=== PATIENT | male | born 1955 | race Caucasian/White ===

== ENCOUNTER 2021-03-05 05:33 | Day surgery (SDC) | payer MEDICARE ==
[2021-02-25 11:58] LABS: BASOPHILS # (AUTO) 0.1 X10'3 (0-0.2); BASOPHILS % (AUTO) 0.9 % (0-1); EOSINOPHILS # (AUTO) 0.1 X10'3 (0-0.9); EOSINOPHILS % (AUTO) 1.9 % (0-6); LYMPHOCYTES # (AUTO) 2.3 X10'3 (1.1-4.8); LYMPHOCYTES % (AUTO) 39.7 % (21-51); MEAN CORPUSCULAR HEMOGLOBIN 29.6 PG (27.0-31.0); MEAN CORPUSCULAR HGB CONC 33.7 g/dL (33.0-36.5); MEAN CORPUSCULAR VOLUME 87.7 FL (78-98); MEAN PLATELET VOLUME 8.2 FL (7.4-10.4); MONOCYTES # (AUTO) 0.4 X10'3 (0-0.9); MONOCYTES % (AUTO) 6.7 % (2-12); NEUTROPHILS % (AUTO) 50.8 % (42-75); PRE OP HEMATOCRIT 45.2 % (42.0-52.0); PRE OP HEMOGLOBIN 15.3 g/dL (14.0-17.9); PRE OP PLATELET COUNT 271 X10'3 (140-440); RED BLOOD COUNT 5.16 X10'6 (4.70-6.10)
[2021-02-25 12:14] LABS: ALBUMIN 4.5 G/DL (3.4-5.0); ALBUMIN/GLOBULIN RATIO 1.2 (1.1-1.5); ALKALINE PHOSPHATASE 105 IU/L (46-116); BLOOD UREA NITROGEN 16 MG/DL (7-18); BUN/CREATININE RATIO 14.8 (5.4-32.0); CALCIUM 9.5 MG/DL (8.5-10.1); CHLORIDE 102 MMOL/L (99-107); CREATININE 1.08 MG/DL (0.60-1.10); PRE OP ALT 35 U/L (30-65); PRE OP ANION GAP 6 (8-16); PRE OP AST 21 U/L (10-37); PRE OP BILIRUB, TOTAL 1.3 MG/DL (0.0-1.0); PRE OP GLUCOSE 104 MG/DL (70-104); PRE OP POTASSIUM 3.4 MMOL/L (3.4-5.1); PRE OP SODIUM 135 MMOL/L (135-145); TOTAL CARBON DIOXIDE 27.2 MMOL/L (24-32); TOTAL PROTEIN 8.2 G/DL (6.4-8.2); eGFR 68 ML/MIN
[2021-02-25 12:17] LABS: CLARITY,URINE CLEAR (Clear); COLOR,URINE YELLOW (Yellow); GLUCOSE, URINE NEGATIVE (Neg); KETONES,URINE NEGATIVE (Neg); NITRITES, URINE NEGATIVE (Neg); OCCULT BLOOD,URINE NEGATIVE (Neg); PROTEIN,URINE NEGATIVE (Neg); UA COLLECTION TYPE VOIDED
[2021-02-25 12:18] LABS: LEUKOCYTE ESTERASE ,URINE NEGATIVE (Neg); UROBILINOGEN,URINE 0.2 E.U/dL (0.2-1.0)
[2021-03-05] VITALS (14 sets, daily range): BP systolic 105–163; BP diastolic 50–92
[~2021-03-05] VITALS: Ht 182.9 cm; Wt 116.0 kg
[~2021-03-05 05:33] MED LIST: AMLO10TA13 PO; ATOR40TA72 PO; ERGO400C PO; LISI1TAB51 PO; MULT-1085 PO; NAPR220C15 PO; ceFAZolin 2gm in dextrose, iso 50 ML IV ONE; famotidine 20mg tablet PO ONE; ringers solution, lacted 1,000 ML IV SCH
[2021-03-05] MEDS ORDERED: amLODIPine 5mg tablet PO ONE (06:00)
[2021-03-05] MEDS ORDERED: LIDOcaine 1% (10mg/ml) 2ml vial ONE (06:03)
[2021-03-05] MEDS ORDERED: bacitracin 15gm ointment TP ONE (08:09)
[2021-03-05] MEDS ORDERED: midazolam 1 mg/ML 2ml injection ONE (08:19)
[2021-03-05] MEDS ORDERED: fentaNYL/PF 50MCG/1 ML 2ML syringe ONE ×2 (08:19→09:09)
[2021-03-05] MEDS ORDERED: proCHLORperazine 10 MG/2 ml inj IV PRN (10:50)
[2021-03-05] MEDS ORDERED: morphine 4 MG/ML inj SYRINge IV PRN (10:50)
[2021-03-05] MEDS ORDERED: ondansetron/PF 4mg/2ml inj IV PRN (10:50)
[2021-03-05] MEDS ORDERED: ROPIVAcaine 0.2% (10 MG/5 ML) BOLUS INJECTION ADDCANAL PRN (10:50)
[2021-03-05] MEDS ORDERED: ringers solution, lacted 1,000 ML IV SCH (10:50)
[2021-03-05] MEDS ORDERED: meperidine/PF 25mg/ml syringe IV PRN ×3 (10:50)
[2021-03-05] MEDS ORDERED: morphine 2 MG/ML inj. syringe IV PRN (10:50)
[2021-03-05] MEDS ORDERED: ROPIVAcaine 0.2%/PF PUMP/bolus 545 ML ADDCANAL SCH (10:55)
[2021-03-05] MEDS ORDERED: ROPIVAcaine 0.5% (5mg/ml) 30ml vial ONE ×2 (12:08)
[2021-03-05] MEDS ORDERED: acetaminophen 1,000mg/100ml IV 100 ML IV ONE (12:09)
[2021-03-05] MEDS ORDERED: rocuronium 10mg/ml inj IV ONE (12:09)
[2021-03-05] MEDS ORDERED: glycopyrrolate 0.2mg/ml inj ONE (12:09)
[2021-03-05] MEDS ORDERED: ondansetron/PF 4mg/2ml inj ONE (12:09)
[2021-03-05] MEDS ORDERED: propofol inj 20 ML IV ONE (12:09)
[2021-03-05] MEDS ORDERED: dexamethasone sod phosphate 4mg/ml inj. ONE (12:09)
[2021-03-05] MEDS ORDERED: LIDOcaine 2% (20mg/ml) 5ml vial ONE (12:09)
[2021-03-05] MEDS ORDERED: neostigmine methylsulfate 1 MG/ML 10ml vial ONE (12:09)
[2021-03-05] MEDS ORDERED: ePHEDrine 50MG/ML INJ. ONE (12:20)
[2021-03-05] MEDS ORDERED: ceFAZolin 1000mg inj ONE (12:46)
[2021-03-05] MEDS ORDERED: meperidine/PF 25mg/ml syringe ONE (13:26)
--- NOTE | 2021-03-05 14:15 | NUR ---
Received from OR via , accompanied by Anesthesiologist DR DHALIWAL and report given by Anesthesiolgist. UNRESPONSIVE LMA VITALS STABLE. DRESSING DI. RLE ELEVATED.
--- NOTE | 2021-03-05 14:28 | NUR ---
PT IS AWAKE AND LMA WAS REMOVED. VITALS STABLE.
[2021-03-05] MEDS ORDERED: HYDROcodone/acetaminophen 10/325mg tab PO ONE (15:10)
[2021-03-05] MEDS ORDERED: ketorolac tromethamine 15mg/ml inj. IV ONE (15:50)
--- NOTE | 2021-03-05 16:35 | NUR ---
AWAKE AND ORIENTED. VITALS STABLE. SPLINT DI. STATES PAIN IMPROVING. HOME WITH HIS SPOUSE AT THIS TIME.
== END 2021-03-05 16:35 | disposition home or self-care (01) ==
LOC: PAS 05:33
PROVIDERS: ATTEND Podiatrist Foot & Ankle Surgery
DX: M19.071 Primary osteoarthritis, right ankle and foot (principal); M21.6X1 Other acquired deformities of right foot; M76.71 Peroneal tendinitis, right leg; M21.171 Varus deformity, not elsewhere classified, right ankle; M25.471 Effusion, right ankle; M25.374 Other instability, right foot; M25.371 Other instability, right ankle; M24.574 Contracture, right foot; M24.071 Loose body in right ankle; M79.671 Pain in right foot; E78.5 Hyperlipidemia, unspecified; I10 Essential (primary) hypertension; G89.18 Other acute postprocedural pain; E66.9 Obesity, unspecified; Z68.33 Body mass index [BMI] 33.0-33.9, adult; Z88.5 Allergy status to narcotic agent; Z79.899 Other long term (current) drug therapy; Z79.82 Long term (current) use of aspirin; Z98.890 Other specified postprocedural states; Z20.822 Contact with and (suspected) exposure to COVID-19
CPT/HCPCS: 20680; 27610; 27685; 27687; 27690; 27695; 28008; 28035; 28270; 28300; 28725; 36415; 64446; 64447; 73610; 76000; 76937; 76942; 80053; 81003; 82948; 85025; 93005; A6223; C1713; C1734; J0131; J0690; J1100; J1885; J2001; J2175; J2250; J2270; J2405; J2704; J2710; J2795; J3010; J7120; U0003; U0005; Z7506; Z7508; Z7512; A4618; A6253; A6449; A7000; J3490

== ENCOUNTER 2021-03-10 08:48 | Emergency (ER) | payer MEDICARE ==
[~2021-03-10] VITALS: Ht 182.9 cm; Wt 115.0 kg
[~2021-03-10 08:48] MED LIST changes: -ceFAZolin 2gm in dextrose, iso 50 ML IV ONE; -famotidine 20mg tablet PO ONE; -ringers solution, lacted 1,000 ML IV SCH
[2021-03-10 10:08] VITALS: BP 117/65
[2021-03-10 10:40] LABS: CLARITY,URINE CLEAR (Clear); COLOR,URINE YELLOW (Yellow); GLUCOSE, URINE NEGATIVE (Neg); KETONES,URINE NEGATIVE (Neg); NITRITES, URINE NEGATIVE (Neg); OCCULT BLOOD,URINE TRACE-INTACT (Neg); PROTEIN,URINE NEGATIVE (Neg); UA COLLECTION TYPE VOIDED
[2021-03-10 10:41] LABS: LEUKOCYTE ESTERASE ,URINE NEGATIVE (Neg); UROBILINOGEN,URINE 0.2 E.U/dL (0.2-1.0)
[2021-03-10 10:44] LABS: MUCUS STRANDS FEW /LPF (Neg); SQUAMOUS EPITHELIAL CELL,UR FEW /LPF (FEW)
[2021-03-10 10:45] LABS: BACTERIA,URINE 1+ /HPF (Neg); RBC,URINE 0-2 /HPF (0-2); WBC CLUMPS,URINE FEW /HPF (NEGATIVE)
[2021-03-10] MEDS ORDERED: DOXY100C76 PO (11:29)
[2021-03-10] MEDS ORDERED: FLO0.4C PO (11:30)
[2021-03-10] MEDS ORDERED: POLY17PO10 PO (11:39)
[2021-03-10] MEDS ORDERED: LEVO500T90 PO (11:39)
[2021-03-10] MEDS ORDERED: IBUP-1984 PO (11:43)
[2021-03-10] MEDS ORDERED: CYCL-1 PO (11:43)
== END 2021-03-10 12:28 | disposition home or self-care (01) ==
LOC: ER 08:49
DX: N39.0 Urinary tract infection, site not specified (principal); R31.9 Hematuria, unspecified; R30.0 Dysuria; M54.50 Low back pain, unspecified; K59.00 Constipation, unspecified; Z98.890 Other specified postprocedural states; Z88.8 Allergy status to other drugs, medicaments and biological substances; Z79.2 Long term (current) use of antibiotics; Z79.899 Other long term (current) drug therapy
CPT/HCPCS: 81001; 87088; 99283

== ENCOUNTER 2021-08-13 12:02 | Inpatient (IN) | payer MEDICARE ==
[2021-08-06 15:32] LABS: CLARITY,URINE CLEAR (Clear); COLOR,URINE YELLOW (Yellow); GLUCOSE, URINE NEGATIVE (Neg); KETONES,URINE NEGATIVE (Neg); LEUKOCYTE ESTERASE ,URINE NEGATIVE (Neg); NITRITES, URINE NEGATIVE (Neg); OCCULT BLOOD,URINE NEGATIVE (Neg); PH,URINE 5.5 (4.8-8.0); PROTEIN,URINE NEGATIVE (Neg); UA COLLECTION TYPE CLN CATCH MIDSTREAM; UROBILINOGEN,URINE 0.2 E.U/dL (0.2-1.0)
[2021-08-06 15:36] LABS: BASOPHILS # (AUTO) 0.1 X10'3 (0-0.2); BASOPHILS % (AUTO) 1.7 % (0-1); EOSINOPHILS # (AUTO) 0.2 X10'3 (0-0.9); EOSINOPHILS % (AUTO) 2.1 % (0-6); LYMPHOCYTES # (AUTO) 1.7 X10'3 (1.1-4.8); LYMPHOCYTES % (AUTO) 23.7 % (21-51); MEAN CORPUSCULAR HEMOGLOBIN 27.5 PG (27.0-31.0); MEAN CORPUSCULAR HGB CONC 32.6 g/dL (33.0-36.5); MEAN CORPUSCULAR VOLUME 84.3 FL (78-98); MONOCYTES # (AUTO) 0.4 X10'3 (0-0.9); MONOCYTES % (AUTO) 5.3 % (2-12); NEUTROPHILS # (AUTO) 4.9 X10'3 (1.8-7.7); NEUTROPHILS % (AUTO) 67.2 % (42-75); PRE OP HEMATOCRIT 42.8 % (42.0-52.0); PRE OP PLATELET COUNT 254 X10'3 (140-440); RED BLOOD COUNT 5.07 X10'6 (4.70-6.10); RED CELL DISTRIBUTION WIDTH 15.3 % (11.5-14.5)
[2021-08-06 15:48] LABS: ALBUMIN 4.4 G/DL (3.4-5.0); ALBUMIN/GLOBULIN RATIO 1.3 (1.1-1.5); ALKALINE PHOSPHATASE 149 IU/L (46-116); BLOOD UREA NITROGEN 20 MG/DL (7-18); BUN/CREATININE RATIO 17.7 (5.4-32.0); CALCIUM 8.7 MG/DL (8.5-10.1); CREATININE 1.13 MG/DL (0.60-1.10); PRE OP ALT 34 U/L (30-65); PRE OP AST 22 U/L (10-37); PRE OP BILIRUB, TOTAL 1.2 MG/DL (0.0-1.0); PRE OP GLUCOSE 76 MG/DL (70-104); TOTAL CARBON DIOXIDE 26.7 MMOL/L (24-32); TOTAL PROTEIN 7.9 G/DL (6.4-8.2); eGFR 65 ML/MIN
[2021-08-06 15:56] LABS: CHLORIDE 103 MMOL/L (99-107); PRE OP ANION GAP 9 (8-16); PRE OP POTASSIUM 3.7 MMOL/L (3.4-5.1); PRE OP SODIUM 139 MMOL/L (135-145)
[2021-08-13] VITALS (18 sets, daily range): BP systolic 106–181; BP diastolic 55–99
[~2021-08-13] VITALS: Ht 182.9 cm; Wt 113.0 kg
[~2021-08-13 12:02] MED LIST changes: +FLO0.4C PO; +cefazolin/dext.iso 2gm/50ml IV ONE; +famotidine 20mg tablet PO ONE; +vancomycin 1,500 MG in NS 300ml IV soln IV ONE
[2021-08-13] MEDS: ringers solution, lacted 1,000 ML IV SCH (12:23)
[2021-08-13] MEDS ORDERED: BUPIVAcaine 0.5% inj/PF 0 ML ONE (13:28)
[2021-08-13] MEDS ORDERED: bacitracin 15gm ointment TP ONE (13:28)
[2021-08-13] MEDS ORDERED: FENTANYL CITRATE/PF 50 MCG/1 ML VIAL ONE ×3 (13:43→17:22)
[2021-08-13] MEDS ORDERED: MIDAZolam 1 MG/ML 5ML VIAL ONE (13:43)
[2021-08-13] MEDS ORDERED: ePHEDrine 50MG/ML INJ. ONE (13:44)
[2021-08-13] MEDS ORDERED: glycopyrrolate 0.2mg/ml inj ONE (13:44)
[2021-08-13] MEDS ORDERED: sevoflurane 250ml liquid IH ONE (13:44)
[2021-08-13] MEDS ORDERED: propofol inj 20 ML IV ONE (13:44)
[2021-08-13] MEDS ORDERED: neostigmine methylsulfate 1 MG/ML 10ml vial ONE (13:44)
[2021-08-13] MEDS ORDERED: PHENYLephrine 10mg/ml 5ml injection IV ONE (13:44)
[2021-08-13] MEDS ORDERED: acetaminophen 1000 MG/100ml vial IV ONE (13:44)
[2021-08-13] MEDS ORDERED: ondansetron/PF 4mg/2ml inj ONE (13:44)
[2021-08-13] MEDS ORDERED: ROPIVAcaine 0.5% (5mg/ml) 30ml vial ONE (15:25)
[2021-08-13] MEDS ORDERED: rocuronium 10mg/ml inj IV ONE (15:25)
[2021-08-13] MEDS ORDERED: meperidine/PF 25mg/ml syringe IV PRN ×2 (15:40)
[2021-08-13] MEDS ORDERED: morphine 2 MG/ML inj. syringe IV PRN (15:40)
[2021-08-13] MEDS ORDERED: morphine 4 MG/ML inj SYRINge IV PRN (15:40)
[2021-08-13] MEDS ORDERED: ROPIVAcaine 0.2% (10 MG/5 ML) BOLUS INJECTION POPLITEAL PRN (15:40)
[2021-08-13] MEDS ORDERED: ringers solution, lacted 1,000 ML IV SCH (15:40)
[2021-08-13] MEDS ORDERED: ondansetron/PF 4mg/2ml inj IV PRN ×2 (15:40→18:15)
[2021-08-13] MEDS ORDERED: HYDROcodone/acetaminophen 10/325mg tab PO PRN ×2 (18:15)
[2021-08-13] MEDS ORDERED: bisacodyl 10mg suppository rectal RC PRN (18:15)
[2021-08-13] MEDS ORDERED: naloxone 0.4 mg/ml inj IV PRN (18:15)
[2021-08-13] MEDS ORDERED: acetaminophen 325mg tablet PO PRN (18:15)
[2021-08-13] MEDS ORDERED: diphenhydrAMINE 25mg capsule PO PRN ×2 (18:15)
[2021-08-13] MEDS ORDERED: magnesium hydroxide 30ml (MOM) UD suspension PO PRN (18:15)
--- NOTE | 2021-08-13 18:19 | NUR ---
Received from OR via [facility] , accompanied by Anesthesiologist DR DHALIWAL and report given by Anesthesiolgist. PT PRESENTS WITH 20G LEFT HAND, MARTINA FOOT/ANKLE SPLINT ALLISON, AUDREYS. Addendum: 08/13/21 at 1833 by Glendy Carballo RN, RN Amended: Links added.
--- NOTE | 2021-08-13 18:19 | NUR ---
PT OUT OF OR, OR REPORTS SUÁREZ CATHETER PLACE DURING SURGERY WITH 170MLS OUT. SUÁREZ CATHETER REMOVED DURING SURGERY. Addendum: 08/13/21 at 1836 by Glendy Carballo RN, RN Amended: Links added.
[2021-08-13] MEDS: ROPIVAcaine 0.2%/PF PUMP/bolus 545 ML POPLITEAL SCH (18:28)
[2021-08-13] MEDS ORDERED: CHOL100046 PO (18:33)
[2021-08-13] MEDS ORDERED: NAPR220C62 PO (18:33)
--- NOTE | 2021-08-13 18:34 | NUR ---
PT OUT OF OR WITH LMA, LMA REMOVED. Addendum: 08/13/21 at 1835 by Glendy Carballo RN, RN Amended: Links added.
--- NOTE | 2021-08-13 19:29 | NUR ---
Report called to receiving nurse TIFFANI HALL. Transferred via [facility]OS[facility] BED TO ROOM 4022B BY CORY HALL AND ALEX HALL. ONE PT Belongings BAG SENT WITH PT AND CELL PHONE TO ROOM 4022B. BED IN LOW LOCKED POSITION WITH CALL LIGHT IN REACH, PT HOKKED UOP TO VITALS MACHINE AND CHART GIVEN TO PROGRAM SUPERVISOR. Special Issues communicated to receiving nurse. Addendum: 08/13/21 at 1935 by Glendy Carballo RN RN Amended: Links added.
[2021-08-13] MEDS ORDERED: vancomycin/NS 1 GM ADD-VANTAGE 250 ML IV SCH (20:00)
[2021-08-13] MEDS ORDERED: oxyCODONE/APAP 5-325mg tablet PO PRN (20:45)
[2021-08-13] MEDS: potassium cl 20mEq in 1/2 NS 1,000 ML IV SCH (21:53)
[2021-08-13] MEDS: sennosides 8.6mg tablet PO SCH (21:54)
[2021-08-13] MEDS: amLODIPine 5mg tablet PO SCH (21:54)
[2021-08-14] MEDS: ceFAZolin/D5W- 1GM premix 50 ML IV SCH ×2 (00:24→09:11)
[2021-08-14] MEDS: oxyCODONE/APAP 10/325mg tablet PO PRN ×2 (00:25→14:17)
[2021-08-14 02:00] VITALS: BP 139/63
[2021-08-14] MEDS: ringers solution, lacted 1,000 ML IV SCH ×4 (04:54→04:58)
[2021-08-14 07:38] LABS: BASOPHILS % (AUTO) 0.3 % (0-1); EOSINOPHILS % (AUTO) 0.2 % (0-6); HEMATOCRIT 38.9 % (42.0-52.0); HEMOGLOBIN 13.1 g/dl (14.0-17.9); LYMPHOCYTES # (AUTO) 0.9 X10'3 (1.1-4.8); LYMPHOCYTES % (AUTO) 9.7 % (21-51); MEAN CORPUSCULAR HEMOGLOBIN 28.5 PG (27.0-31.0); MEAN CORPUSCULAR HGB CONC 33.7 g/dL (33.0-36.5); MEAN CORPUSCULAR VOLUME 84.6 FL (78-98); MEAN PLATELET VOLUME 8.3 FL (7.4-10.4); MONOCYTES # (AUTO) 0.6 X10'3 (0-0.9); MONOCYTES % (AUTO) 6.8 % (2-12); NEUTROPHILS # (AUTO) 7.6 X10'3 (1.8-7.7); PLATELET COUNT 205 X10'3 (140-440); RED CELL DISTRIBUTION WIDTH 15.3 % (11.5-14.5); WHITE BLOOD COUNT 9.1 X10'3 (4.5-11.0)
[2021-08-14 08:11] LABS: ANION GAP 9 (8-16); CHLORIDE 105 MMOL/L (99-107); POTASSIUM 4.1 MMOL/L (3.5-5.1); SODIUM 138 MMOL/L (135-145); TOTAL CARBON DIOXIDE 24.2 MMOL/L (24-32)
--- NOTE | 2021-08-14 08:30 | NUR ---
Bladder scan done 1000ml in bladder. Called Dr Cotto for straight cath order.
--- NOTE | 2021-08-14 09:00 | NUR ---
Straight cath done 800ml out after 125ml void
[2021-08-14] MEDS: potassium cl 20mEq in 1/2 NS 1,000 ML IV SCH ×3 (09:10→18:15)
[2021-08-14] MEDS: tamsulosin 0.4mg capsule PO SCH (09:12)
[2021-08-14] MEDS: HYDROchlorothiazide 12.5mg capsule PO SCH (09:12)
[2021-08-14] MEDS: atorvastatin 20mg tablet PO SCH (09:12)
[2021-08-14] MEDS: lisinopril 20mg tablet PO SCH (09:13)
[2021-08-14] MEDS: multivitamins, therapeutics tablet PO SCH (09:13)
[2021-08-14] MEDS: aspirin 325mg tablet PO SCH (09:15)
[2021-08-14 10:00] VITALS: BP 123/60
--- NOTE | 2021-08-14 13:00 | NUR ---
Pt having bladder pressure, bladder scan done 700ml in bladder.
--- NOTE | 2021-08-14 13:32 | NUR ---
straight cath done, 800ml out. pt tolerated well
[2021-08-14 14:00] VITALS: BP 138/81
[2021-08-14 18:00] VITALS: BP 144/75
[2021-08-14] MEDS: sennosides 8.6mg tablet PO SCH (20:13)
[2021-08-14] MEDS: amLODIPine 5mg tablet PO SCH (20:13)
[2021-08-14] MEDS ORDERED: tamsulosin 0.4mg capsule PO ONE (20:40)
[2021-08-14] MEDS ORDERED: LIDOcaine 2% 10ml TOPICAL JELLY (Urojet) TP ONE (20:40)
[2021-08-14 22:04] VITALS: BP 127/64
--- NOTE | 2021-08-14 22:41 | NUR ---
807 in bladder. 1x dose of PM flomax given but patient is still retaining. Per Dr Cotto, put Stout back in if patient is retaining. I have already done 2 straight caths. Patient has some intermittent voids up to 200ml at a time but retains urine still.
--- NOTE | 2021-08-15 00:12 | NUR ---
Patient in room ORTHO 4022. I have received report from Lisette HALL and had the opportunity to ask questions and assume patient care.
--- NOTE | 2021-08-15 00:15 | NUR ---
Gail HALL to take over care. Pt sleeping comfortably at this time.
[2021-08-15 06:00] VITALS: BP 161/73
--- NOTE | 2021-08-15 06:25 | NUR ---
Problems reprioritized. Patient report given, questions answered & plan of care reviewed with Jacquelin HALL.
--- NOTE | 2021-08-15 07:07 | NUR ---
Patient in room ORTHO 4022B. I have received report from RAFAEL MYRICK and had the opportunity to ask questions and assume patient care.
[2021-08-15 07:13] LABS: ALBUMIN 3.3 G/DL (3.4-5.0); ANION GAP 5 (8-16); BLOOD UREA NITROGEN 13 MG/DL (7-18); BUN/CREATININE RATIO 13.3 (5.4-32.0); CALCIUM 8.5 MG/DL (8.5-10.1); CHLORIDE 103 MMOL/L (99-107); CREATININE 0.98 MG/DL (0.60-1.10); GLUCOSE 117 MG/DL (70-104); POTASSIUM 3.9 MMOL/L (3.5-5.1); SODIUM 135 MMOL/L (135-145); TOTAL CARBON DIOXIDE 27.2 MMOL/L (24-32); eGFR 77 ML/MIN
[2021-08-15 07:14] LABS: BASOPHILS % (AUTO) 0.3 % (0-1); EOSINOPHILS # (AUTO) 0.1 X10'3 (0-0.9); EOSINOPHILS % (AUTO) 1.2 % (0-6); HEMATOCRIT 37.3 % (42.0-52.0); HEMOGLOBIN 12.6 g/dl (14.0-17.9); LYMPHOCYTES # (AUTO) 1.3 X10'3 (1.1-4.8); LYMPHOCYTES % (AUTO) 12.2 % (21-51); MEAN CORPUSCULAR HEMOGLOBIN 28.6 PG (27.0-31.0); MEAN CORPUSCULAR HGB CONC 33.7 g/dL (33.0-36.5); MEAN CORPUSCULAR VOLUME 84.8 FL (78-98); MEAN PLATELET VOLUME 8.4 FL (7.4-10.4); MONOCYTES # (AUTO) 0.9 X10'3 (0-0.9); MONOCYTES % (AUTO) 8.5 % (2-12); NEUTROPHILS % (AUTO) 77.8 % (42-75); PLATELET COUNT 197 X10'3 (140-440); RED BLOOD COUNT 4.39 X10'6 (4.70-6.10); RED CELL DISTRIBUTION WIDTH 15.6 % (11.5-14.5); WHITE BLOOD COUNT 10.2 X10'3 (4.5-11.0)
[2021-08-15 09:38] VITALS: BP 134/78
[2021-08-15] MEDS: aspirin 325mg tablet PO SCH (09:40)
[2021-08-15] MEDS: tamsulosin 0.4mg capsule PO SCH (09:40)
[2021-08-15] MEDS: HYDROchlorothiazide 12.5mg capsule PO SCH (09:40)
[2021-08-15] MEDS: lisinopril 20mg tablet PO SCH (09:41)
[2021-08-15] MEDS: multivitamins, therapeutics tablet PO SCH (09:41)
[2021-08-15] MEDS: atorvastatin 20mg tablet PO SCH (09:41)
[2021-08-15 10:00] VITALS: BP 142/85
[2021-08-15] MEDS: ROPIVAcaine 0.2%/PF PUMP/bolus 545 ML POPLITEAL SCH (14:10)
--- NOTE | 2021-08-15 14:30 | NUR ---
PATIENT STABLE AND APPROPRIATE FOR DISCHARGE, IV TAKEN OUT, TELE REMOVED, EDUCATION GIVEN INCLUDING HOW TO CHANGE AND MANAGE SUÁREZ CATHETER, SUPPLIES GIVEN FOR SUÁREZ CARE AND BAG CHANGE, DR ERICKSON WAS CONSULTED TO FOLLOW UP WITH PATIENT AND SUÁREZ AFTER DISCHARGE, ALL BELONGINGS SENT WITH PATIENT, PATIENT TAKEN TO LOBBY BY WHEELCHAIR TO AN AWAITING CAR WHERE WILL TAKE PATIENT HOME
== END 2021-08-15 14:31 | disposition home or self-care (01) | DRG 469 ==
LOC: PAS 12:02 → ORTHO 4S 20:06
PROVIDERS: ADMIT Podiatrist Foot & Ankle Surgery; ATTEND Podiatrist Foot & Ankle Surgery
PROC: 0L8N0ZZ Division of Right Lower Leg Tendon, Open Approach (ICD-10-PCS; 2021-08-13)
PROC: 0MQQ0ZZ Repair Right Ankle Bursa and Ligament, Open Approach (ICD-10-PCS; 2021-08-13)
PROC: 3E0T3BZ Introduction of Anesthetic Agent into Peripheral Nerves and Plexi, Percutaneous Approach (ICD-10-PCS; 2021-08-13)
PROC: 0SRF0J9 Replacement of Right Ankle Joint with Synthetic Substitute, Cemented, Open Approach (ICD-10-PCS; principal; 2021-08-13 13:44)
DX: M19.071 Primary osteoarthritis, right ankle and foot (principal); N39.0 Urinary tract infection, site not specified; M65.871 Other synovitis and tenosynovitis, right ankle and foot; M21.171 Varus deformity, not elsewhere classified, right ankle
CPT/HCPCS: 36415; 73610; 73630; 76000; 80048; 80051; 80053; 81003; 82948; 85025; 87081; 93005; 97116; 97161; 97530; A4618; A6223; A6253; A6449; A7000; C1713; C1776; G0378; J0131; J0690; J2175; J2250; J2370; J2405; J2704; J2710; J2795; J3010; J3370; J3480; J3490; J7040; J7120; S0020; U0003; U0005